=== PATIENT | male | born 1980 | race Caucasian/White ===

== ENCOUNTER 2016-08-29 16:08 | Emergency (ER) | payer OTHER ==
[~2016-08-29] VITALS: Ht 172.7 cm; Wt 60.0 kg
[~2016-08-29 16:08] MED LIST: DICY1TAB26 PO; LEVS0.124 SL; METR250 PO; VICO7.5T PO; [UNRECOGNIZED DRUG - CODE] SL
[2016-08-29 16:09] VITALS: BP 155/82; PULSE 95; RESP 14; TEMP 98.4; O2SAT 99
[2016-08-29] MEDS ORDERED: MORPHINE SULFATE 4 MG/ML INJ IV PUSH ONE (18:30)
[2016-08-29] MEDS ORDERED: SODIUM CHLORIDE 0.9% FLUSH 5 ML FLUSH IVF PRN (18:30)
[2016-08-29] MEDS ORDERED: IOHEXOL 350 MG/ML 10 ML VIAL (for RAD DIAG) IV ONE (19:05)
[2016-08-29 19:06] LABS: AUTOMATED NEUTROPHIL # 3.2 TH/MM3 (1.8-7.7); BASOPHIL % 0.5 % (0.0-2.0); EOSINOPHIL % 0.6 % (0.0-4.0); HEMATOCRIT 43.8 % (39.0-51.0); HEMO FLAGS DIFF FINAL; LYMPH % 20.6 % (9.0-44.0); MEAN CELL VOLUME 93.8 FL (80.0-100.0); MEAN CORPUSCULAR HEMOGLOBIN 32.9 PG (27.0-34.0); MEAN CORPUSCULAR HGB CONC 35.1 % (32.0-36.0); MONO % 14.2 % (0.0-8.0); NEUT % 64.1 % (16.0-70.0); PLATELET COUNT 227 TH/MM3 (150-450); RED BLOOD COUNT 4.67 MIL/MM3 (4.50-5.90); RED CELL DISTRIBUTION WIDTH 12.3 % (11.6-17.2); WHITE BLOOD COUNT 5.1 TH/MM3 (4.0-11.0)
--- NOTE | 2016-08-29 19:14 | PD ---
HPI Chief Complaint: Abdominal Pain Time Seen by Provider: 19:11 Travel History International Travel<30 days: No Contact w/Intl Traveler<30days: No Traveled to known affect area: No History of Present Illness HPI This is a 36-year-old male who presents to the emergency department with 4 days of right lower quadrant abdominal pain, constant, moderate severity, associated with nausea and decreased appetite as well as subjective fevers and chills. Patient initially had symptoms that started in [place] but he didn't want to go to the hospital there is if he needed admission he wanted to be at home. He went to see his physician Dr. tinoco today who was concerned for appendicitis and sent him to the emergency department. He's never had surgery before and is otherwise healthy. [facility] Past Medical History Medical History: Denies Significant Hx Diminished Hearing: No Tetanus Vaccination: Never Vaccinated Influenza Vaccination: Yes Past Surgical History Surgical History: No Previous Surgery Social History Alcohol Use: No Tobacco Use: Yes (1 PPD) Substance Use: Yes (LORTAB ADDICT) Allergies-Medications (Allergen,Severity, Reaction): Coded Allergies: No Known Allergies (Verified , 08/29/16) Reported Meds & Prescriptions Reported Meds & Active Scripts Active No Active Prescriptions or Reported Medications Review of Systems Except as stated in HPI: all other systems reviewed are Neg Physical Exam Narrative GENERAL:Well appearing, no acute distress SKIN: Warm and dry. HEAD: Atraumatic. Normocephalic. EYES: Pupils equal and round. No injection or drainage. ENT: Moist mucous membranes NECK: Trachea midline. CARDIOVASCULAR: Regular rate and rhythm. No murmur appreciated. RESPIRATORY: Clear to auscultation. Breath sounds equal bilaterally. GASTROINTESTINAL: Abdomen soft, tender to palpation in the right upper quadrant and right lower quadrants with guarding. MUSCULOSKELETAL: No obvious deformities. NEUROLOGICAL: Awake and alert. No obvious cranial nerve deficits. Moving all extremities. PSYCHIATRIC: Appropriate mood and affect; insight and judgment normal. Data Data Last Documented VS Vital Signs Date Time Temp Pulse Resp B/P Pulse Ox O2 Delivery O2 Flow Rate FiO2 08/29/16 16:09 98.4 95 14 155/82 99 Room Air Orders Complete Blood Count With Diff (08/29/16 18:30) Comprehensive Metabolic Panel (08/29/16 18:30) Lipase (08/29/16 18:30) Urinalysis - C+S If Indicated (08/29/16 18:30) Ct Abd/Pel W Iv Contrast(Rout) (08/29/16 18:30) Iv Access Insert/Monitor (08/29/16 18:30) Ecg Monitoring (08/29/16 18:30) Oximetry (08/29/16 18:30) Morphine Inj (Morphine Inj) (08/29/16 18:30) Sodium Chloride 0.9% Flush (Ns Flush) (08/29/16 18:30) Iohexol 350 Inj (Omnipaque 350 Inj) (08/29/16 19:05) Labs Laboratory Tests Test 08/29/16 18:40 White Blood Count 5.1 TH/MM3 Red Blood Count 4.67 MIL/MM3 Hemoglobin 15.4 GM/DL Hematocrit 43.8 % Mean Corpuscular Volume 93.8 FL Mean Corpuscular Hemoglobin 32.9 PG Mean Corpuscular Hemoglobin 35.1 % Concent Red Cell Distribution Width 12.3 % Platelet Count 227 TH/MM3 Mean Platelet Volume 8.5 FL Neutrophils (%) (Auto) 64.1 % Lymphocytes (%) (Auto) 20.6 % Monocytes (%) (Auto) 14.2 % Eosinophils (%) (Auto) 0.6 % Basophils (%) (Auto) 0.5 % Neutrophils # (Auto) 3.2 TH/MM3 Lymphocytes # (Auto) 1.0 TH/MM3 Monocytes # (Auto) 0.7 TH/MM3 Eosinophils # (Auto) 0.0 TH/MM3 Basophils # (Auto) 0.0 TH/MM3 CBC Comment DIFF FINAL Differential Comment MDM Medical Decision Making Medical Screen Exam Complete: Yes Emergency Medical Condition: Yes Differential Diagnosis Appendicitis, cholelithiasis, cholecystitis, colitis Narrative Course This is a 36-year-old male who presents the emergency department with a history suggestive of appendicitis. He is placed in a monitor and an IV was established. Labs will be obtained and CT imaging will be obtained. Case was discussed with Dr. Solano who will disposition the patient based on CT results. Scripts No Active Prescriptions or Reported Meds Nona Zafar MD Aug 29, 2016 19:14
--- NOTE | 2016-08-29 19:17 | RADRPT ---
EXAM DATE/TIME: 08/29/2016 18:52 [place] COMPARISON: No previous studies available for comparison. INDICATIONS : RLQ abdominal pain for three days. IV CONTRAST: 94 cc Omnipaque 350 (iohexol) IV ORAL CONTRAST: No oral contrast ingested. RADIATION DOSE: 9.96 CTDIvol (mGy) MEDICAL HISTORY : None SURGICAL HISTORY : None. ENCOUNTER: Initial ACUITY: 3 days PAIN SCALE: 8/10 LOCATION: Right lower quadrant abdomen/pelvis TECHNIQUE: Volumetric scanning of the abdomen and pelvis was performed. Using automated exposure control and adjustment of the mA and/or kV according to patient size, radiation dose was kept as low as reasonably achievable to obtain optimal diagnostic quality images. FINDINGS: Lung bases are clear. The liver is free of focal defects. Gallbladder, spleen, pancre as and adrenals are unremarkable. There is symmetrical renal function. The region of the cecum and terminal ileum is unremarkable. I do not see inflammatory changes or a d ilated appendix. Prostate is prominent with minimal prostatic calcifications present. Seminal vesicles are normal. T here is no adenopathy. There is no ascites. There is no free air. CONCLUSION: 1. I do not see an etiology for the patient's right lower quadrant pain. 2. Appendix and region of the appendix looks reasonably normal by CT. Chavo Leigh MD FACR on August 29, 2016 at 19:08 Board Certified Radiologist. This report was verified electronically.
[2016-08-29 19:27] LABS: ANION GAP 8 MEQ/L (5-15); AST (GOT) 12 U/L (15-37); BICARBONATE 28.2 MEQ/L (21.0-32.0); BLOOD UREA NITROGEN 12 MG/DL (7-18); CHLORIDE 101 MEQ/L (98-107); GLOMERULAR FILTRATION RATE 83 ML/MIN (>89); POTASSIUM 3.5 MEQ/L (3.5-5.1); SODIUM (NA) 137 MEQ/L (136-145)
[2016-08-29 19:31] LABS: ALKALINE PHOSPHATASE 66 U/L (45-117); ALT (GPT) 19 U/L (12-78); TOTAL BILIRUBIN ADULT 0.2 MG/DL (0.2-1.0)
[2016-08-29] MEDS ORDERED: KETOROLAC TROMETHAMINE 30 MG/ML (IVP) VIAL IV PUSH ONE (20:00)
--- NOTE | 2016-08-29 20:02 | PD ---
Physical Exam Date Seen by Provider: Aug 29, 2016 Time Seen by Provider: 19:00 Narrative Care assumed from Dr. Zafar who is evaluating the patient for right-sided abdominal pain. Patient reports a three-day history of right-sided abdominal pain associated with loose stools. The patient is awake and alert and in no acute distress. Vital signs are unremarkable. His abdomen has positive bowel sounds and is soft with some diffuse right-sided tenderness more so in the right upper quadrant than the right lower quadrant. There is no guarding or rebound. Data Data Last Documented VS Vital Signs Date Time Temp Pulse Resp B/P Pulse Ox O2 Delivery O2 Flow Rate FiO2 08/29/16 16:09 98.4 95 14 155/82 99 Room Air Orders Complete Blood Count With Diff (08/29/16 18:30) Comprehensive Metabolic Panel (08/29/16 18:30) Lipase (08/29/16 18:30) Urinalysis - C+S If Indicated (08/29/16 18:30) Ct Abd/Pel W Iv Contrast(Rout) (08/29/16 18:30) Iv Access Insert/Monitor (08/29/16 18:30) Ecg Monitoring (08/29/16 18:30) Oximetry (08/29/16 18:30) Morphine Inj (Morphine Inj) (08/29/16 18:30) Sodium Chloride 0.9% Flush (Ns Flush) (08/29/16 18:30) Iohexol 350 Inj (Omnipaque 350 Inj) (08/29/16 19:05) Ketorolac Inj (Toradol Inj) (08/29/16 20:00) Labs Laboratory Tests Test 08/29/16 08/29/16 18:40 19:50 White Blood Count 5.1 TH/MM3 Red Blood Count 4.67 MIL/MM3 Hemoglobin 15.4 GM/DL Hematocrit 43.8 % Mean Corpuscular Volume 93.8 FL Mean Corpuscular Hemoglobin 32.9 PG Mean Corpuscular Hemoglobin 35.1 % Concent Red Cell Distribution Width 12.3 % Platelet Count 227 TH/MM3 Mean Platelet Volume 8.5 FL Neutrophils (%) (Auto) 64.1 % Lymphocytes (%) (Auto) 20.6 % Monocytes (%) (Auto) 14.2 % Eosinophils (%) (Auto) 0.6 % Basophils (%) (Auto) 0.5 % Neutrophils # (Auto) 3.2 TH/MM3 Lymphocytes # (Auto) 1.0 TH/MM3 Monocytes # (Auto) 0.7 TH/MM3 Eosinophils # (Auto) 0.0 TH/MM3 Basophils # (Auto) 0.0 TH/MM3 CBC Comment DIFF FINAL Differential Comment Sodium Level 137 MEQ/L Potassium Level 3.5 MEQ/L Chloride Level 101 MEQ/L Carbon Dioxide Level 28.2 MEQ/L Anion Gap 8 MEQ/L Blood Urea Nitrogen 12 MG/DL Creatinine 1.01 MG/DL Estimat Glomerular Filtration 83 ML/MIN Rate Random Glucose 134 MG/DL Calcium Level 8.6 MG/DL Total Bilirubin 0.2 MG/DL Aspartate Amino Transf 12 U/L (AST/SGOT) Alanine Aminotransferase 19 U/L (ALT/SGPT) Alkaline Phosphatase 66 U/L Total Protein 7.6 GM/DL Albumin 3.9 GM/DL Lipase 85 U/L Urine Color LIGHT-YELLOW Urine Turbidity CLEAR Urine pH 7.0 Urine Specific [place] GREATER THAN 1.050 Urine Protein TRACE mg/dL Urine Glucose (UA) NEG mg/dL Urine Ketones NEG mg/dL Urine Occult Blood TRACE Urine Nitrite NEG Urine Bilirubin NEG Urine Urobilinogen LESS THAN 2.0 MG/DL Urine Leukocyte Esterase NEG Urine RBC 1 /hpf Urine WBC LESS THAN 1 /hpf Urine Sperm RARE Microscopic Urinalysis Comment CULT NOT INDICATED MDM Supervised Visit with MÓNICA: No Differential Diagnosis Differential diagnosis of abdominal pain includes but is not limited to gastritis, pancreatitis, hepatitis, gastroenteritis, gallbladder disease, constipation, urinary retention, UTI, peptic ulcer disease, diverticulitis or appendicitis Narrative Course Patient presented for evaluation of right-sided abdominal pain. He has a normal CT. He has a normal white blood count. Chemistries are unremarkable. UA is still pending. Patient was treated with morphine, 4 mg IV with initial improvement in his pain. He reports that the pain is returning. I have ordered Toradol. UA shows a specific gravity of 1.050. No evidence of infection. It appears that the patient is dehydrated based upon his urine specific gravity. No etiology for abdominal pain has been found. Diagnosis Primary Impression: Abdominal pain Qualified Code: R10.11 - Right upper quadrant abdominal pain Additional Impression: Dehydration Patient Instructions: Abdominal Pain (ED), General Instructions, Narcotic given in the ED Additional Instruction: See your doctor if abdominal pain has not improved within the next 24-48 hours. See them sooner if pain worsens. Med/Other Pt SpecificInfo: Prescription(s) given Scripts Dicyclomine (Bentyl)20 Mg Tab20 Mg PO QID PRN (abdominal pain) #20 TAB Ref 0 Prov:Regla Solano MD 08/29/16 Disposition: 01 DISCHARGE HOME Condition: Stable Regla Solano MD Aug 29, 2016 20:02
[2016-08-29 20:34] LABS: BLOOD, URINE TRACE (NEG); COMMENT (UR) CULT NOT INDICATED; CULTURE IF INDICATED CULT NOT INDICATED; GLUCOSE,URINE NEG (NEG); KETONE, URINE NEG (NEG); NITRITE,URINE NEG (NEG); URINE COLOR LIGHT-YELLOW (YELLW/STRAW)
[2016-08-29] MEDS ORDERED: BENT20TA PO (20:45)
== END 2016-08-29 21:15 | disposition home or self-care (01) ==
LOC: NEPC 16:08
DX: R10.31 Right lower quadrant pain (principal); R10.11 Right upper quadrant pain; E86.0 Dehydration
CPT/HCPCS: 74177; 80053; 81001; 83690; 85025; 96374; 96375; 99284; J1885; J2270; Q9967